=== PATIENT | male | born 1975 | race Caucasian/White ===

== ENCOUNTER 2021-06-30 15:15 | Outpatient (REF) | payer BC, OTHER, SELFPAY ==
[2021-06-30 15:36] LABS: Glucose 101 mg/dL (74-106)
[2021-06-30 16:03] LABS: Cholesterol 205 mg/dL (<200); HDL Cholesterol 63 mg/dL (40-60)
== END 2021-06-30 15:16 | disposition home or self-care (01) ==
LOC: LBN 15:15
PROVIDERS: Visit Provider Physician Assistant Medical
DX: Z00.8 Encounter for other general examination (principal)
CPT/HCPCS: 82947; 82465; 83718